=== PATIENT | male | born 1985 | race Caucasian/White ===

== ENCOUNTER 2020-04-14 22:52 | Emergency (ER) | payer OTHER ==
[~2020-04-14] VITALS: Ht 175.3 cm; Wt 81.6 kg
[~2020-04-14 22:52] MED LIST: IBUPROFEN600 MG ORAL; TRAMADOL HCL50 MG ORAL
[2020-04-14 23:15] VITALS: BP 153/96
--- NOTE | 2020-04-14 23:23 | Emergency Room Report ---
History of Present Illness General Chief Complaint: Earache Source: Patient Present Illness [facility] This a 34-year-old male with no past medical history who presents with chief complaint of sore throat and ear pain. Onset for last 2 days. No fever or chills. Pain is 8 out of 10. Worse with swallowing. Radiating to the right ear. He said he felt some postnasal drip. Has a slight cough. No sick contact. Has not take anything for this. Nothing made it better. Swallowing made it worse. Allergies: Coded Allergies: No Known Allergies (Unverified , 04/14/20) COVID-19 Screening Contact w/high risk pt: No Experienced COVID-19 symptoms?: No COVID-19 Testing performed [employer]: No Patient History Past Medical History: see triage record, old chart reviewed Past Surgical History: none Pertinent Family History: none Social History: Denies: smoking Immunizations: other Reviewed Nursing Documentation: PMH: Agreed; PSxH: Agreed Nursing Documentation-PMH Hx Hypertension: Yes Review of Systems Eye: Denies: eye pain, blurred vision ENT: Reports: ear pain, throat pain; Denies: nose congestion, throat swelling Respiratory: Denies: cough, shortness of breath Cardiovascular: Denies: chest pain, palpitations Gastrointestinal: Denies: abdominal pain, diarrhea, nausea, vomiting Musculoskeletal: Denies: back pain, joint pain Skin: Denies: rash Neurological: Denies: headache, numbness Endocrine: Denies: increased thirst, increased urine Hematologic/Lymphatic: Denies: easy bruising All Other Systems: negative except mentioned in HPI Physical Exam Vital Signs Date Time Temp Pulse Resp B/P (MAP) Pulse Ox O2 Delivery O2 Flow Rate FiO2 04/14/20 22:55 98.4 68 16 153/96 (115) 98 Room Air Vitals with high blood pressure Sp02 EP Interpretation: reviewed, normal General Appearance: well appearing, no apparent distress, alert Head: normocephalic, atraumatic Eyes: bilateral eye PERRL, bilateral eye EOMI ENT: hearing grossly normal, pharyngeal erythema Neck: full range of motion, supple, no meningismus Respiratory: chest non-tender, lungs clear, normal breath sounds Cardiovascular #1: regular rate, rhythm, no murmur Gastrointestinal: normal bowel sounds, non tender, no mass, no organomegaly, no bruit, non-distended Musculoskeletal: back normal, normal range of motion, gait/station normal Psychiatric: mood/affect normal Medical Decision Making Diagnostic Impression: Primary Impression: Pharyngitis, acute Qualified Codes: J02.9 - Acute pharyngitis, unspecified ER Course Patient with acute pharyngitis. This is most likely viral but could also be strep. We will put him on antibiotics. I see no evidence of COVID infection. No evidence of retropharyngeal abscess, peritonsillar abscess or Alex angina. There is no evidence of ear infection. Will discharge home. Last Vital Signs Date Time Temp Pulse Resp B/P (MAP) Pulse Ox O2 Delivery O2 Flow Rate FiO2 04/14/20 22:55 98.4 68 16 153/96 (115) 98 Room Air Status: improved Disposition: HOME, SELF-CARE Condition: Stable Scripts Ibuprofen* (MOTRIN*) 600 Mg Tablet 600 MG ORAL Q6H PRN for For Pain, #30 TAB 0 Refills Prov: Lester Jimenez MD 04/15/20 Azithromycin* (ZITHROMAX*) 250 Mg Tablet 250 MG ORAL DAILY, #6 TAB 0 Refills Take two tables once daily for 1 day, then one tablet once daily for 4 days. Prov: Lester Jimenez MD 04/15/20 Referrals: NOT CHOSEN IPA/,REFERRING (PCP) Additional Instructions: Increase fluids. Salt water gargle. Follow-up with your doctor in 7 days for recheck. Return if symptoms worsen. Lester Jimenez MD Apr 14, 2020 23:23
--- NOTE | 2020-04-14 23:28 | NUR ---
Nurse Note: PT walked in c/o Rt ear burning pain and throat pain for past 3 days. PT stated unk cause. Denies n/v/d, chest pain, shortness of breath. Pt stated he self medicated with 3 caps of advil around 2100; not effective. All orders completed per ERMD orders. RAPID covid swab collected and sent to lab.
[2020-04-15] MEDS ORDERED: ZITHROMAX250 MG ORAL (00:02)
[2020-04-15] MEDS ORDERED: IBUPROFEN600 M1 ORAL (00:02)
== END 2020-04-15 00:05 | disposition home or self-care (01) ==
LOC: EMR 23:19
DX: J02.9 Acute pharyngitis, unspecified (principal); I10 Essential (primary) hypertension
CPT/HCPCS: 99282; U0002